=== PATIENT | female | born 1975 ===

== ENCOUNTER 2017-09-22 12:59 | Outpatient (CLI) | payer OTHER | END 2017-09-22 13:03 | disposition home or self-care (01) | LOC: MAMO-SONO 12:59 | DX: Z12.31 Encounter for screening mammogram for malignant neoplasm of breast (principal) ==

== ENCOUNTER 2018-11-28 09:00 | Outpatient (CLI) | payer OTHER | END 2018-11-28 09:02 | disposition home or self-care (01) | LOC: MAMO-SONO 09:00 | DX: Z12.31 Encounter for screening mammogram for malignant neoplasm of breast (principal); Z87.898 Personal history of other specified conditions ==

== ENCOUNTER 2019-03-02 14:19 | Outpatient (CLI) | payer OTHER | END 2019-03-02 14:23 | disposition home or self-care (01) | LOC: SONOGRAMA 14:19 | DX: R10.2 Pelvic and perineal pain (principal) ==

== ENCOUNTER 2020-07-24 10:18 | Outpatient (CLI) | payer OTHER | END 2020-07-24 10:22 | disposition home or self-care (01) | LOC: MAMO-SONO 10:18 | DX: Z12.31 Encounter for screening mammogram for malignant neoplasm of breast (principal); N64.0 Fissure and fistula of nipple ==

== ENCOUNTER → 2021-10-06 | Outpatient (CLI) | payer OTHER | END | disposition home or self-care (01) | LOC: MAMO-SONO 12:12 | DX: Z12.31 Encounter for screening mammogram for malignant neoplasm of breast (principal) ==